=== PATIENT | female | born 1960 | race Caucasian/White ===

== ENCOUNTER 2024-09-13 10:51 | Outpatient (CLI) | payer MEDICARE, BC, SELFPAY ==
[2024-09-13 11:03] VITALS: BP 125/85; PULSE 83; RESP 18; TEMP 36.6; O2SAT 98
[2024-09-13 11:22] VITALS: O2SAT 96
[2024-09-13 11:25] VITALS: O2SAT 96
[2024-09-13 11:30] VITALS: O2SAT 96
[2024-09-13 11:35] VITALS: O2SAT 99
--- NOTE | 2024-09-13 11:37 | PDOC.PAIN_ITS ---
Date of service: 09/13/24 Time of Service: 11:41 Pain Managment Procedure Note Procedure Note Procedure Note: CERVICAL EPIDURAL STEROID INJECTION ? Pre-procedure Diagnosis: M54.12- Radiculopathy, cervical region ? Post-procedure Diagnosis:? The same as above ? Sedation:? ? none ? Medication: Depo-Medrol 80 mg, Omnipaque 1 mL ? Estimated blood loss:? less than 2 cc ? Surgeon:? Tae Joseph MD Comment: Pt has neck and right shoulder pain with some stenosis at C3-4 ? Procedure Detail:? The procedure and potential risks were explained to the patient and informed written consent was obtained. The patient was escorted to the procedure room and placed in the prone position. Pillows were utilized for proper positioning and comfort. Time out was performed in the procedure room with nursing staff confirming the patient's identity, procedure to be performed, allergies, and any blood thinning or anti-platelet medications.? The patient's neck and upper back was prepped with ChloraPrep and draped in a sterile fashion. Sterile technique was maintained throughout the procedure.? Sterile gloves were used, a face mask was worn, and new single dose vials of all medications were used with the top being swabbed with alcohol and given time to dry prior to withdrawal of medication. Lidocaine 1% was used to anesthetize the skin. Using a 25-gauge 1.5 inch needle, 1% lidocaine was instilled into the superficial soft tissue overlying the targeted area to provide local anesthesia. With fluoroscopic guidance, a 17 -gauge Tuohy needle was advanced toward the interlaminar space of C7-T1. The needle was then advance through the ligamentum flavum and into the posterior epidural space using the loss of resistance technique. Correct needle placement was confirmed through review of the AP and c ontralateral oblique fluoroscopic views. A 19-gauge Arrow catheter was threaded cephalad to the Right C5 Following negative aspiration, one cc of Omnipaque 240 contrast was injected which confirmed good flow throughout the epidural space and no evidence of vascular flow or flow into adjacent compartments. Next, following negative aspiration, 1 cc's of normal saline and 80mg of Depo-Medrol was injected. The needle and catheter were gently removed intact. The patient tolerated the procedure well and was transported to the recovery area for observation and discharge instructions. Permanent images saved and recorded. Plan:? Follow up PRN. PAIN PRE PROCEDURE 02/24 POST PROCEDURE 11/26 COMMENT:pt will f/u for [facility] if not improved from [facility]- would do C5,6,7
--- NOTE | 2024-09-13 11:39 | DI.RAD_ITS ---
Exam(s) XR PAIN CLINIC CERVICAL SP 2V EXAM: XR PAIN CLINIC CERVICAL SP 2V CLINICAL HISTORY: Dx: Cervical Radiculopathy. TECHNIQUE: Fluoroscopy was provided for the referring physician for guidance with performing pain cl inic injection procedure. COMPARISON: No exams were available for comparison FINDINGS: Please see procedure note for details. Fluoro time: 35.2 seconds RADIATION DOSE DELIVERED: Ka,r=5.6 mGy
[2024-09-13] MEDS: Lidocaine 1% Pres-Free 30 ML VIAL IJ (11:43)
[2024-09-13] MEDS: Omnipaque 240 MG/ML 50 ML BTL IJ (11:43)
[2024-09-13] MEDS: methylPREDNISolone ACETATE 40 MG/ML VIAL IJ (11:44)
[2024-09-13] MEDS: Normal Saline 20 ML VIAL 10 ML IJ (11:44)
== END 2024-09-13 10:52 | disposition home or self-care (01) ==
PROVIDERS: PCP Family Medicine; Visit Provider Anesthesiology Pain Medicine
DX: M54.2 Cervicalgia (principal); M54.12 Radiculopathy, cervical region
CPT/HCPCS: 00123; 62321; 72040; J1010; Q9967